=== PATIENT | female | born 1970 | race Caucasian/White ===

== ENCOUNTER 2016-07-06 14:24 | Emergency (ER) | payer SELFPAY ==
[~2016-07-06] VITALS: Ht 182.9 cm; Wt 73.0 kg
[2016-07-06 14:26] VITALS: BP 140/83; PULSE 78; RESP 20; TEMP 97.6; O2SAT 97
[2016-07-06] MEDS ORDERED: IBUPROFEN 800 MG TAB PO ONE (15:15)
--- NOTE | 2016-07-06 15:16 | PD ---
HPI Chief Complaint: Injury Time Seen by Provider: 15:08 Travel History International Travel<30 days: No Contact w/Intl Traveler<30days: No Traveled to known affect area: No History of Present Illness HPI 46-year-old female presents to the emergency Department with complaint of right ankle and foot pain 10 days after tripping and falling while running with her dog. Denies paresthesias, loss of sensation to affected extremity. Reports decreased range of motion secondary to pain and inflammation. Denies fever, chills, nausea, vomiting. Has been emulating on the affected extremity with support of a cane. Has been taking ibuprofen with no symptom relief. Pain is aggravated with movement, palpation, walking. Reports ecchymosis to her foot, ankle, and lower leg that was worse in the beginning and has gotten better now. Allergies to Bactrim. History of hypothyroidism. No other modifying factors or associated signs and symptoms. PFSH Past Medical History Endocrine: Yes (thyroid) Social History Tobacco Use: Yes Allergies-Medications (Allergen,Severity, Reaction): Coded Allergies: Bactrim (Verified Allergy, Severe, Hives, 07/06/16) Reported Meds & Prescriptions Reported Meds & Active Scripts Active Lortab (Hydrocodone-Acetaminophen) 5-325 Mg Tab 1-2 Tab PO Q6H PRN Ibuprofen 800 Mg Tab 800 Mg PO Q6HR PRN Review of Systems Except as stated in HPI: all other systems reviewed are Neg Physical Exam Narrative GENERAL: Well-nourished, well-developed patient, in no acute distress SKIN: Warm and dry. HEAD: Atraumatic. Normocephalic. EYES: Pupils equal and round. No scleral icterus. No injection or drainage. ENT: Mucosa pink and moist. Airway patent. NECK: Trachea midline. CARDIOVASCULAR: Regular rate. RESPIRATORY: No accessory muscle use. GASTROINTESTINAL: Flat. MUSCULOSKELETAL: Right lateral ankle and lateral foot is edematous and with stage IV bruising noted; with point tenderness to the lateral aspect of the ankle and the foot; stage IV bruising noted up the lateral aspect of the right lower leg and is with tenderness on palpation; no obvious deformities; sensory intact; 2+ pedal pulse; less than 3 second cap refill. Right lower extremity is supple and non-tense with 2+ pedal pulse and sensory intact and without erythema or edema. No obvious deformities. No clubbing. No cyanosis. NEUROLOGICAL: Awake and alert. Oriented 3. No obvious cranial nerve deficits. Motor grossly within normal limits. Normal speech. PSYCHIATRIC: Appropriate mood and affect; insight and judgment normal. Data Data Last Documented VS Vital Signs Date Time Temp Pulse Resp B/P Pulse Ox O2 Delivery O2 Flow Rate FiO2 07/06/16 15:40 Room Air 07/06/16 14:26 97.6 78 20 140/83 97 Orders Foot, Complete ([id number]) (07/06/16 15:06) Tibia/Fibula (Ap/Lat) (07/06/16 15:06) Ankle, Complete ([id number]) (07/06/16 15:06) Ibuprofen (Motrin) (07/06/16 15:15) Post Op Boot (Shoe) (07/06/16 ) Crutches (07/06/16 16:34) MDM Medical Decision Making Medical Screen Exam Complete: Yes Emergency Medical Condition: Yes Medical Record Reviewed: Yes Differential Diagnosis Ankle fracture, dislocation, sprain Narrative Course 46-year-old female with right ankle and foot injury 10 days after a mechanical fall. Patient also has bruising to the right lateral lower leg and with tenderness on palpation. Right lower extremity is supple and non-tense with 2+ pedal pulse and sensory intact without erythema or edema. Ibuprofen ordered. Right ankle, foot, tibia/fibula x-ray ordered. 1635: Right ankle x-ray concludes findings suggest possible avulsive injury of the inferior lateral talus. Cam Walker boot ordered. Crutches ordered for support. Mandatory outpatient referral to orthopedic placed as patient does not have insurance. Instructed patient to follow up with orthopedic. Ibuprofen and Lortab prescribed for home. Patient is medically cleared and stable for discharge. Discussed reasons to return to the emergency department. Instructed patient to follow up with primary care provider. Patient agrees with treatment plan. The patients vital signs are stable and the patient is stable for outpatient follow-up and treatment. Patient discharged home, stable and in no acute distress. Diagnosis Primary Impression: Closed right ankle fracture Qualified Code: S82.891A - Closed right ankle fracture, initial encounter Referrals: Orthopaedic Surgeon Primary Care Physician Patient Instructions: Ankle Fracture (ED), General Instructions Additional Instructions: Tylenol/ibuprofen every 6 hours as directed and as needed for pain Rest, ice, compress, and elevate extremity to decrease pain and inflammation Brace for support Crutches for support Avoid aggravating activity; increase activity as tolerated Follow-up with primary care provider Follow-Up with orthopedic on Thursday07/07/2016 Return to the emergency department immediately with worsening symptoms Med/Other Pt SpecificInfo: Prescription(s) given Scripts Hydrocodone-Acetaminophen (Lortab)5-325 Mg Tab1-2 Tab PO Q6H PRN (PAIN GREATER THAN 5) #10 TAB Ref 0 Prov:Douglas Martinez MD 07/06/16 Ibuprofen 800 Mg Kyi300 Mg PO Q6HR PRN (PAIN LESS THAN 5 ON SCALE) #30 TAB Ref 0 Prov:Marguerite Ovalle 07/06/16 Disposition: 01 DISCHARGE HOME Condition: Stable Marguerite Ovalle Jul 06, 2016 15:16
--- NOTE | 2016-07-06 16:13 | RADRPT ---
EXAM DATE/TIME: 07/06/2016 15:32 [facility] COMPARISON: No previous studies available for comparison. INDICATIONS : Trauma/ Fall x 10 days ago MEDICAL HISTORY : None. SURGICAL HISTORY : Hysterectomy. ENCOUNTER: Initial ACUITY: 1 day PAIN SCORE: 10/10 LOCATION: Right Foot FINDINGS: Three view examination of the right foot demonstrates no soft tissue swelling, dislocation, or fractu re. The tarsal bones appear intact. The interphalangeal and metatarsophalangeal joints are intact. The calcaneus is intact. Bony mineralization is normal. CONCLUSION: No evidence of recent bony injury. Asael Dunn MD on July 06, 2016 at 16:11 Board Certified Radiologist. This report was verified electronically.
--- NOTE | 2016-07-06 16:13 | RADRPT ---
EXAM DATE/TIME: 07/06/2016 15:31 [facility] COMPARISON: No previous studies available for comparison. INDICATIONS : Trauma/ Fall x 10 days ago MEDICAL HISTORY : None. SURGICAL HISTORY : Hysterectomy. ENCOUNTER: Initial ACUITY: 1 day PAIN SCORE: 10/10 LOCATION: Right Ankle FINDINGS: Three-view examination of the ankle was performed. The ankle mortise is intact. No fracture seen of the distal tibia or fibula. The talar dome and neck is intact. On the frontal view, there are 2 sm all calcific densities present along the inferior lateral aspect of the talus which are of uncertain significance. These could represent avulsive fragments. There is questionable soft tissue thickenin g about the lateral aspect of the ankle below the malleolus. No radiopaque foreign body seen. CONCLUSION: Findings suggest possible avulsive injury of the inferior lateral talus. Asael Dunn MD on July 06, 2016 at 16:01 Board Certified Radiologist. This report was verified electronically.
--- NOTE | 2016-07-06 16:13 | RADRPT ---
EXAM DATE/TIME: 07/06/2016 15:35 [facility] COMPARISON: No previous studies available for comparison. INDICATIONS : Trauma/ Fall x 10 days ago. MEDICAL HISTORY : None. SURGICAL HISTORY : Hysterectomy. ENCOUNTER: Initial ACUITY: 1 day PAIN SCORE: 10/10 LOCATION: Right Tib/fib FINDINGS: Two view examination of the right tibia demonstrates no evidence of fracture or dislocation. Bony mi neralization is normal. The soft tissue structures are intact. CONCLUSION: The shaft of the tibia and fibula are intact. Asael Dunn MD on July 06, 2016 at 16:12 Board Certified Radiologist. This report was verified electronically.
[2016-07-06] MEDS ORDERED: HYDR-3533 PO (16:39)
[2016-07-06] MEDS ORDERED: IBUP800T23 PO (16:39)
== END 2016-07-06 17:24 | disposition home or self-care (01) ==
LOC: NEPB 14:24
DX: S82.891A Other fracture of right lower leg, initial encounter for closed fracture (principal); E03.9 Hypothyroidism, unspecified; Z72.0 Tobacco use; W01.0XXA Fall on same level from slipping, tripping and stumbling without subsequent striking against object, initial encounter; Y93.02 Activity, running
CPT/HCPCS: 73590; 73610; 73630; 99283; E0113; L2114